=== PATIENT | male | born 1950 | race Caucasian/White ===

== ENCOUNTER 2018-08-09 09:06 | Outpatient (CLI) | payer MEDICARE, OTHER ==
--- NOTE | 2018-08-09 11:53 | MRI ---
CERVICAL SPINE MRI WITHOUT CONTRAST: HISTORY: Cervical radiculopathy. COMPARISON: None. TECHNIQUE: Cervical spine MRI is performed without intravenous Gadolinium administration. Multisequential, mult iplanar imaging is performed. FINDINGS: There is straightening of normal cervical lordosis. 1.1 mm of anterolisthesis of C2 upon C3, 2.9 mm of retrolisthesis of C3 upon C4, 2 mm retrolisthesis of C4 upon C5, 2.5 mm retrolisthesis of C5 upon C6, 2.7 mm retrolisthesis of C6 upon C7. There is in trinsic T1 and T2 hyperintensity along the right aspect of C7 compatible with a small hemangioma. Visualized brain parenchyma, cervicomedullary junction, cervical cord, and the upper thoracic cord dennison ve an overall normal size. No significant STIR hyperintensity to suggest vertebral body edema or ligamentous injury. C2-C3: Central disk-osteophyte complex abuts the thecal sac. No significant central canal stenosis. Neural foramen are patent. C3-C4: Broad-based disk-osteophyte complex abuts the thecal sac. Moderate central canal stenosis. Moderate bilateral foraminal narrowing. C4-C5: Broad-based disk-osteophyte complex abuts the thecal sac. Mild to moderate central canal mary ellen nosis. Moderate right and mild to moderate left foraminal narrowing. C5-C6: Broad-based disk-osteophyte complex. Severe central canal stenosis. There is deformity of t he cervical cord. T2 hyperintensity in the cord is suspected suggesting cord malacia. There is fredrick re bilateral foramen narrowing. C6-C7: Broad-based disk-osteophyte complex with severe central canal stenosis. Severe bilateral for aminal narrowing. C7-T1: Central disk-osteophyte complex. Moderate central canal stenosis. Severe right and moderate left foraminal narrowing. IMPRESSION: 1. Degenerative disk disease of the cervical spine as above. 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 2. Severe central canal stenosis at C6-C7 and moderate central canal stenosis at C7-T1. POS: [facility]
== END 2018-08-09 09:07 | disposition home or self-care (01) ==
LOC: TBSIIMAG 09:06
PROVIDERS: ATTEND Family Medicine
DX: M50.10 Cervical disc disorder with radiculopathy, unspecified cervical region (principal); M48.02 Spinal stenosis, cervical region; M83.9 Adult osteomalacia, unspecified
CPT/HCPCS: 72141

== ENCOUNTER 2021-12-05 10:20 | Outpatient (CLI) | payer MEDICARE | END 2021-12-05 10:21 | disposition home or self-care (01) | LOC: TBSIIMAG 10:20 | PROVIDERS: ATTEND Neurological Surgery | DX: M47.12 Other spondylosis with myelopathy, cervical region (principal); M48.02 Spinal stenosis, cervical region; G95.89 Other specified diseases of spinal cord | CPT/HCPCS: 72141 ==

== ENCOUNTER 2021-12-26 10:24 | Outpatient (CLI) | payer MEDICARE ==
[2021-12-27 00:01] LABS: SARS-CoV-2 PCR by NAA Not Detected (NotDetected)
== END 2021-12-26 10:25 | disposition home or self-care (01) ==
LOC: LABBT 10:24
PROVIDERS: ATTEND Neurological Surgery
DX: Z01.818 Encounter for other preprocedural examination (principal); M47.812 Spondylosis without myelopathy or radiculopathy, cervical region; Z20.822 Contact with and (suspected) exposure to COVID-19
CPT/HCPCS: 93005; U0003; U0005; 93010

== ENCOUNTER 2021-12-31 06:28 | Observation (INO) | payer MEDICARE ==
[2021-12-31] MEDS ORDERED: EPINEPHrine 1 MG/ML AMP ONE (09:14)
[2021-12-31] MEDS ORDERED: Bupivacaine PF 0.5% 30 ML VIAL ONE (09:14)
[2021-12-31] MEDS ORDERED: Fentanyl 250 MCG/5 ML VIAL ONE ×2 (09:30→12:03)
[2021-12-31] MEDS ORDERED: ceFAZolin (BATCH) 2 GM/100 ML BAG ONE (09:31)
[2021-12-31] MEDS ORDERED: Dexamethasone 20 MG/5 ML VIAL ONE (09:37)
[2021-12-31] MEDS ORDERED: Lidocaine 1% PF 5 ML VIAL ONE (09:37)
[2021-12-31] MEDS ORDERED: Rocuronium Bromide 10 MG/ML (10ML VIAL) ONE (09:37)
[2021-12-31] MEDS ORDERED: GLYCOPYRROLATE/PF 0.2 MG/ML VIAL ONE (09:37)
[2021-12-31] MEDS ORDERED: PROPOFOL 200 MG/20 ML VIAL ONE (09:37)
[2021-12-31] MEDS ORDERED: Ondansetron PF 4 MG/2 ML Vial ONE (09:37)
[2021-12-31] MEDS ORDERED: Esmolol 100 MG/10 ML VIAL ONE (09:37)
[2021-12-31] MEDS ORDERED: ePHEDrine 50 MG/ML VIAL ONE (09:37)
[2021-12-31] MEDS ORDERED: Ketorolac Tromethamine 30 MG/ML VIAL ONE (09:37)
[2021-12-31] MEDS ORDERED: Lidocaine 1% MPF 2 ML VIAL ONE (09:47)
[2021-12-31] MEDS ORDERED: Tamsulosin HCl 0.4 MG CAP ONE (12:07)
[2021-12-31] MEDS ORDERED: HYDROcodone/Acetaminophen 5/325 mg Tablet ONE (13:56)
[2021-12-31 15:37] VITALS: BMI 28.4
[2021-12-31] MEDS ORDERED: Ondansetron PF 4 MG/2 ML Vial IM PRN (17:36)
[2021-12-31] MEDS: Sodium Chloride 0.9% 1,000 ML IV SCH (17:44)
[2021-12-31] MEDS ORDERED: Acetaminophen 650 MG Suppository PR PRN (17:45)
[2021-12-31] MEDS ORDERED: Morphine 2 MG/ML VIAL SLOW IVP PRN (17:45)
[2021-12-31] MEDS ORDERED: Acetaminophen/Codeine 30-300mg Tablet PO PRN ×2 (17:45)
[2021-12-31] MEDS ORDERED: Bisacodyl 10 MG SUPP PR PRN (17:45)
[2021-12-31] MEDS ORDERED: Acetaminophen 325 MG TAB PO PRN (17:45)
[2021-12-31] MEDS ORDERED: diphenhydrAMINE 50 MG/ML VIAL IVP PRN (17:45)
[2021-12-31] MEDS ORDERED: diphenhydrAMINE 25 MG CAP PO PRN (17:45)
[2021-12-31] MEDS: Cyclobenzaprine 10 MG TAB PO PRN (17:45)
[2021-12-31] MEDS ORDERED: Morphine 4 MG/ML VIAL SLOW IVP PRN (17:45)
[2021-12-31] MEDS ORDERED: Melatonin 3 MG TAB PO SCH (21:00)
[2021-12-31] MEDS ORDERED: guaiFENesin ER 600 MG TAB PO SCH (21:30)
[2021-12-31] MEDS: CEFAZOLIN 2 GM, Admixture Fee 1 EACH in Sodium Chloride 0.9% 100 ML IVPB SCH (21:35)
[2022-01-01] MEDS ORDERED: Tamsulosin HCl 0.4 MG CAP PO SCH ×2 (06:00→09:00)
[2022-01-01] MEDS: Sodium Chloride 0.9% 1,000 ML IV SCH (06:46)
[2022-01-01] MEDS: CEFAZOLIN 2 GM, Admixture Fee 1 EACH in Sodium Chloride 0.9% 100 ML IVPB SCH ×2 (07:48→13:37)
[2022-01-01] MEDS: Cyclobenzaprine 10 MG TAB PO PRN (07:48)
[2022-01-01] MEDS ORDERED: Ketorolac Tromethamine 30 MG/ML VIAL IVP SCH ×2 (08:30→14:30)
[2022-01-01] MEDS ORDERED: Cholecalciferol 1,000 UNITS (25 MCG) TAB PO SCH (09:00)
[2022-01-01] MEDS ORDERED: guaiFENesin ER 600 MG TAB PO SCH (09:00)
[2022-01-01] MEDS ORDERED: oxyCODONE/Acetaminophen 5 mg/325 mg Tablet PO SCH (09:00)
[2022-01-01] MEDS ORDERED: Meloxicam 15 MG TAB PO SCH (09:00)
[2022-01-01] MEDS ORDERED: Losartan 25 MG TAB PO SCH (09:00)
[2022-01-01 16:35] VITALS: BP 151/70; TEMP 97.9
== END 2022-01-01 16:39 | disposition home or self-care (01) ==
LOC: SDC 06:28 → T4-A 15:25
PROVIDERS: ADMIT Neurological Surgery; ATTEND Neurological Surgery
PROC: 01N10ZZ Release Cervical Nerve, Open Approach (ICD-10-PCS; principal; 2021-12-31)
DX: M48.02 Spinal stenosis, cervical region (principal); M47.12 Other spondylosis with myelopathy, cervical region; M47.22 Other spondylosis with radiculopathy, cervical region; I10 Essential (primary) hypertension; G89.4 Chronic pain syndrome; Z87.891 Personal history of nicotine dependence; Z79.899 Other long term (current) drug therapy
CPT/HCPCS: 51701; 63045; 63048 ×3; 76000; 96374; 96375; 96376; 97139 ×2; C1713; G0378 ×2; J3490; 51798; J0171; J0690; J1100; J1885; J2270; J2405; J2704; J3010; J7050; S0020

== ENCOUNTER 2022-09-04 12:32 | Outpatient (CLI) | payer MEDICARE | END 2022-09-04 12:33 | disposition home or self-care (01) | LOC: TBSIIMAG 12:32 | PROVIDERS: ATTEND Anesthesiology Pain Medicine | DX: M51.16 Intervertebral disc disorders with radiculopathy, lumbar region (principal); M48.061 Spinal stenosis, lumbar region without neurogenic claudication | CPT/HCPCS: 72148 ==

== ENCOUNTER 2023-05-10 08:49 | Emergency (ER) | payer MEDICARE ==
[2023-05-10 11:37] LABS: Bacteria/HPF None Seen HPF (None Seen); Bilirubin Negative (Negative); Blood, Urine Negative (Negative); CAUTI Indications for Culture Pelvic or flank pain; Clarity Clear (Clear); Glucose, Urine (Dipstick) Normal (Negative); Ketone, Urine Negative (Negative); Leukocyte Negative Leu/uL (Negative); Nitrite Negative (Negative); Protein, Urine (Dipstick) Negative (Neg-Trace); RBC/HPF 0-3 HPF (0-3); Specific Gravity, Urine 1.014 (1.002-1.036); Squamous Epithelial 0-3 HPF (0-3); Urobilinogen Normal mg/dL (Less than 2); WBC/HPF 0-3 HPF (0-3)
[2023-05-10 11:39] LABS: Urine Culture Reflex No No
[2023-05-10 12:36] LABS: #Basophils 0.1 thou/uL (0.0-0.2); #Eosinphils 0.1 thou/uL (0.0-0.7); #Monocytes 0.5 thou/uL (0.11-0.59); #Neutrophils 4.2 thou/uL (1.40-6.50); %Basophils 0.7 % (0.0-1.0); %Eosinophils 1.4 % (0.0-10.0); %Lymphocytes 31.3 % (21.0-51.0); %Monocytes 6.5 % (0.0-10.0); Hemoglobin 14.4 g/dL (14.0-18.0); Mean Corpuscular HGB CONC 33.6 g/dL (32.0-36.0); Mean Corpuscular Volume 92.2 fl (78.0-98.0); Mean Platelet Volume 9.7 fL (7.4-10.4); Platelet Count 149 10x3/uL (130-400); RBC Distribution Width 13.2 % (11.5-14.5); Red Blood Cell (RBC) Count 4.64 mill/uL (4.70-6.10); White Blood Cell (WBC) Count 7.1 10x3/uL (4.8-10.8)
[2023-05-10 13:04] LABS: ALT (SGPT) 10 U/L (8-55); AST (SGOT) 16 U/L (5-34); Albumin 4.1 g/dL (3.4-4.8); Alkaline Phosphatase 42 U/L (40-110); Anion Gap 13 mmol/L (10-20); BUN (Urea Nitrogen) 9 mg/dL (8.4-25.7); Bilirubin, Total 0.8 mg/dL (0.2-1.2); Calc. Creatinine Clearance 0 mL/min (70-130); Calcium 9.5 mg/dL (7.8-10.44); Carbon Dioxide 27 mmol/L (23-31); Chloride 106 mmol/L (98-107); Estimated GFR 83; Globulin 2.9 g/dL (2.4-3.5); Glucose 100 mg/dL (83-110); Potassium 4.9 mmol/L (3.5-5.1); Sodium 141 mmol/L (136-145)
== END 2023-05-10 14:21 | disposition home or self-care (01) ==
LOC: ERS 08:49
DX: R33.9 Retention of urine, unspecified (principal); I10 Essential (primary) hypertension; I48.91 Unspecified atrial fibrillation; Z79.01 Long term (current) use of anticoagulants
CPT/HCPCS: 36415; 80053; 81001; 85025; 93005

== ENCOUNTER 2023-08-31 12:14 | Emergency (ER) | payer MEDICARE | END 2023-08-31 13:45 | disposition home or self-care (01) | LOC: ERS 12:14 | DX: M54.9 Dorsalgia, unspecified (principal); I10 Essential (primary) hypertension; Z79.899 Other long term (current) drug therapy; Z79.01 Long term (current) use of anticoagulants | CPT/HCPCS: 93005; 94760 ==